=== PATIENT | female | born 1955 | race African-American/Black ===

== ENCOUNTER 2022-03-25 16:58 | Emergency (ER) | payer MEDICARE ==
[~2022-03-25] VITALS: Ht 152.4 cm; Wt 78.0 kg
[2022-03-25 17:16] VITALS: BP 152/67
== END 2022-03-25 18:47 | disposition left against medical advice (07) ==
LOC: ER 18:42
DX: Z53.21 Procedure and treatment not carried out due to patient leaving prior to being seen by health care provider (principal); Z90.49 Acquired absence of other specified parts of digestive tract